=== PATIENT | female | born 1985 | race Caucasian/White ===

== ENCOUNTER 2016-09-23 10:20 | Inpatient (IN) ==
[2016-09-23] MEDS ORDERED: VANCOMYCIN 1 GM/NS 250 ML IV ONE ×2 (11:39→16:30)
--- NOTE | 2016-09-23 11:39 | PROVIDER DOCUMENTATION ---
HPI-Respiratory General - General Chief Complaint: Abnormal Lab[s] Stated Complaint: POSS PNEUMONIA Time Seen by Provider: 09/23/16 11:37 Source: patient Allergies/Adverse Reactions: Patient Allergies Allergy/AdvReac Type Severity Reaction Status Date / Time No Known Allergies Allergy Verified 09/23/16 10:35 Home Medications: Home Medication List Medication Instructions Recorded Confirmed Last Taken Type Hydrocodone/APAP 10 mg/325 mg 1 - 2 each PO Q4-6H PRN PRN #0 02/21/16 09/23/16 Unknown Rx [[place]-10] tablet Brompheniramine/Pseudoephed/Dm 5 ml PO Q6H PRN 09/23/16 09/23/16 09/23/16 History [Bromfed Dm Cough Syrup] Cefdinir 300 mg PO BID 09/23/16 09/23/16 09/23/16 History Ketorolac [Toradol] 10 mg PO Q6H PRN PRN 09/23/16 09/23/16 Unknown History Tamoxifen [Nolvadex] 20 mg PO DAILY 09/23/16 09/23/16 09/23/16 History - History of Present Illness-Resp Nature of Presenting Problem: patient is 31 y/o F that started to feel bad on 09/18/16 with coughing and congestion. She began to feel better the next day but 2 days later started to get worse. [place] [facility] [place] Doxy[place]. she returned to the ER on yesterday 09/22/16, she had complete work up with cxr and blood cultures. Dx with PNA(lingular) and gram positive rods BC. patient has had breast cancer and is under chemo. She is on Tamoxifen and tested positive for Beta Severity in ED: reports: moderate Onset/Duration: reports: gradual, 5 days ago, 6 days ago Timing: reports: still present, constant Context: reports: recent chemotherapy, multiple patients with similar complaints , recent URI Cough Quality/Degree: reports: moderate, productive cough Episode Frequency: no prior episodes Current Respiratory Medication Therapy: Initiated see nurses note Modifying Factors: worse with: coughing Associated Symptoms: reports: cough, fever/chills, muscle/bodyaches. denies: facial pain, nasal congestion, nasal drainage, wheezing Similar Symptoms Previously?: Yes Recently seen or treated by another doctor?: Yes Review of Systems - Adult - REVIEW OF SYSTEMS - ADULT Constitutional: reports: fever, fatique. denies: chills Eyes: reports: no symptoms reported Ears, Nose, Mouth & Throat: denies: ear pain, sinus problem, throat pain, throat swelling Cardiovascular: denies: chest pain, palpitations, syncope Respiratory: reports: cough, wheezing Gastrointestinal: denies: abdominal pain, diarrhea, nausea, vomiting Genitourinary: reports: no symptoms reported Musculoskeletal: reports: no symptoms reported Integumentary: reports: no symptoms reported Neurological: denies: dizziness/vertigo, headache/migraines, syncope Psychiatric: reports: no symptoms reported Endocrine: reports: no symptoms reported Hematologic/Lymphatic: reports: no symptoms reported Allergic/Immunologic: reports: no symptoms reported All Other Systems: Reviewed and Negative Past History - Adult - PAST MEDICAL HISTORY-ADULT Review of Records: reports: Old Records Reviewed, Nursing Assessment Review, Medications Reviewed Obstetrical/Gynecological: reports: other (breast ca) - PRIOR SURGERIES/PROCEDURES Surgical/Procedure History: reports: indwelling device (port a cath), breast ( mastectomy) - IMMUNIZATION STATUS Childhood Immunizations: See Nurse Assessment Flu Vaccine: See Nurse Assessment - FAMILY HISTORY Family History: reviewed, not pertinent - SOCIAL HISTORY Smoking: non-smoker Living Situation: family Physical Exam-General - PHYSICAL EXAM-ADULT Initial Vital Signs Reviewed: Yes - CONSTITUTIONAL General Appearance: alert, no apparent distress - EYES Eyes: PERRL/EOMI, pink conjunctivae - HEAD, EARS, NOSE, MOUTH & THROAT HENMT: normocephalic/atraumatic, moist mucous membranes, normal ENT inspection - NECK Neck: full range of motion, normal inspection. negative: C-spine tenderness - RESPIRATORY Respiratory: lungs clear, normal breath sounds, no respiratory distress, no accessory muscle use - CARDIOVASCULAR Cardiovascular: regular rate, rhythm, no edema, no murmur - GASTROINTESTINAL (ABDOMEN) Abdominal Exam: normal bowel sounds, non tender, soft, no organomegaly, no pulsatile mass - MUSCULOSKELETAL Extremity: normal range of motion, normal inspection, no pedal edema, normal capillary refill - SKIN Integumentary: normal color, normal turgor, warm/dry, other (no swelling or erythema to implants, no signs of infection to port-a-cath). negative: erythema , swelling - NEUROLOGIC Neurologic: grossly normal, no motor/sensory deficits - PSYCHIATRIC Psych/Mental Status: normal mood/affect, normal thought content, normal thought process, oriented x 3 Progress - PLAN OF CARE/RESULTS Progress/Plan/Lab Results: plan of care-labs, meds, admit 1207-hospitalist paged for admission, reviewed [place] [facility] [place]ital Signs Temp Pulse Resp BP Pulse Ox 09/23/16 13:51 75 20 111/72 99 09/23/16 10:24 98.1 F 71 18 137/78 100 No Known Allergies Allergy (Verified 09/23/16 10:35) Hydrocodone/APAP 10 mg/325 mg [[place]-10] 1 - 2 each PO Q4-6H PRN PRN #0 tablet 02/21/16 Brompheniramine/Pseudoephed/Dm [Bromfed Dm Cough Syrup] 5 ml PO Q6H PRN Cefdinir 300 mg PO BID 09/23/16 Ketorolac [Toradol] 10 mg PO Q6H PRN PRN 09/23/16 Tamoxifen [Nolvadex] 20 mg PO DAILY 09/23/16 Dietary Diet NPO Start ThuSep 23 1137 Laboratory 09/23/16 09/23/16 09/23/16 12:51 12:04 11:25 WBC RBC Hgb Hct MCV MCH MCHC RDW Std Deviation Plt Count MPV Immature Gran % (Auto) Neut % (Auto) Lymph % (Auto) [place] % (Auto) Eos % (Auto) Baso % (Auto) Immature Gran # (Auto) Neut # (Auto) Lymph # (Auto) [place] # (Auto) Eos # (Auto) Baso # (Auto) Specimen Type ARTERIAL Sample Site R BRACHIAL pH 7.44 pCO2 39 pO2 94 HCO3 26.6 H Base Excess 2.2 Oxyhemoglobin 96.1 ABG O2 Sat (Calculated) 16.7 ABG O2 Saturation 99.3 ABG Carboxyhemoglobin 1.70 ABG Methemoglobin 1.6 H Misha Test NO A-a O2 Difference 7.0 Total Hemoglobin 12.3 Lactate 0.60 Blood Gas Modality ROOM AIR FiO2 % 21.0 Sodium 141 Potassium 3.6 Chloride 106 Carbon Dioxide 26 Anion Gap 9 BUN 7 L Creatinine 0.5 Estimated GFR/1.73 m2 > 60 BUN/Creatinine Ratio 14 Glucose 111 H Calculated Osmolality 280 Calcium 8.4 L Total Bilirubin 0.10 L AST 10 ALT 8 L Alkaline Phosphatase 48 Total Protein 6.3 Albumin 3.4 L Globulin 2.9 Albumin/Globulin Ratio 1.2 Plasma Lactate 0.4 L 09/23/16 11:25 WBC 3.91 L RBC 3.94 L Hgb 10.8 L Hct 32.7 L MCV 83.0 MCH 27.4 MCHC 33.0 RDW Std Deviation 13.5 Plt Count 230 MPV 10.3 Immature Gran % (Auto) 0.0 Neut % (Auto) 68.8 Lymph % (Auto) 24.0 [place] % (Auto) 4.6 Eos % (Auto) 2.3 Baso % (Auto) 0.3 Immature Gran # (Auto) 0.00 Neut # (Auto) 2.69 Lymph # (Auto) 0.94 L [place] # (Auto) 0.18 Eos # (Auto) 0.09 Baso # (Auto) 0.01 Specimen Type Sample Site pH pCO2 pO2 HCO3 Base Excess Oxyhemoglobin ABG O2 Sat (Calculated) ABG O2 Saturation ABG Carboxyhemoglobin ABG Methemoglobin Misha Test A-a O2 Difference Total Hemoglobin Lactate Blood Gas Modality FiO2 % Sodium Potassium Chloride Carbon Dioxide Anion Gap BUN Creatinine Estimated GFR/1.73 m2 BUN/Creatinine Ratio Glucose Calculated Osmolality Calcium Total Bilirubin AST ALT Alkaline Phosphatase Total Protein Albumin Globulin Albumin/Globulin Ratio Plasma Lactate Orders Category Date Time Status NPO Diet 09/23/16 11:[address] THORAX W/CONTRAST [CT] Routine Exams 09/24/16 12:57 Ordered ABG [RESP] Routine Lab 09/23/16 12:04 Completed BLOOD CULTURE [BLDCUL] Stat Lab 09/23/16 11:25 Results CBC WITH ELECTRONIC DIFF [HEME] Stat Lab 09/23/16 11:25 Completed COMPREHENSIVE METABOLIC PANEL [CHEM] Stat Lab 09/23/16 11:25 Completed LACTATE, PLASMA [CHEM] Stat Lab 09/23/16 12:51 Completed Meropenem [Merrem] 1 gm Med 09/23/16 11:40 Discontinued 0.9% Sodium Chloride Inj [Ns] 50 ml IV NOW Vancomycin 1 gm/Ns 250 ml Med 09/23/16 11:39 Discontinued IV NOW Oxygen Device Routine Oth 09/23/16 11:37 Active EKG [EKG] Stat Ther 09/23/16 11:38 Draft Transfer/Admit Order [TRANSFER] Routine Transfer 09/23/16 15:01 Ordered - CONSULTS/PCP/HOSPITALIST Notification #1 *Consult/PCP/Hospitalist*: Time Discussed: 12:59 Reason/Comments: will examine patient Consult Disposition: Will see in ED Departure - Departure Time of Disposition Order: 12:59 DIAGNOSIS: Immunocompromised patient Pneumonia Qualifiers: Pneumonia type: due to unspecified organism Laterality: unspecified laterality Lung location: unspecified part of lung Qualified Code(s): J18.9 - Pneumonia, unspecified organism Disposition: ADMITTED INPATIENT 09 Certified Medical Emergency: Emergent Condition: Stable Attestation - Scribe Verification/Attestation Scribe:: Tremaine Silva Acting as Scribe for:: Rikki Anderson Scribe documention review:: This chart was documented by a scribe and accurately reflects the service the provider performed and the decisions made by the provider. Physician Attestation - Physician Attestation I, the provider, attest to the following statement:: Rikki Anderson Physician documentation Attestation:: This documentation recorded by the scribe accurately reflects the service I personally performed and the decisions made by me.
[2016-09-23] MEDS ORDERED: MERREM 1 GM in NS 50 ML IV ONE (11:40)
[2016-09-23 12:14] LABS: ALLEN TEST NO; BE 2.2 mmoll (-3.0-3.0); BLOOD TYPE ARTERIAL; DRAW SITE R BRACHIAL; METHB 1.6 % (0.0-1.5); O2(CT) 16.7 mL/dL (15.0-23.0); PCO2(98.6) 39 mmHg (35-45); PO2(98.6) 94 mmHg (60-100); SAMPLE BLOOD; SAO2 99.3 % (95.0-100.0); THB 12.3 g/dL (11.5-17.4); pH(98.6) 7.44 (7.35-7.45)
[2016-09-23 12:15] LABS: MODALITY ROOM AIR
[2016-09-23 12:21] LABS: MANUAL DIFF NEEDED? NO
[2016-09-23 12:29] LABS: BASO% 0.3 % (0.0-0.8); EOS# 0.09 X1000 (0.0-0.7); EOS% 2.3 % (0.0-10.0); HEMATOCRIT 32.7 % (37.0-47.0); HEMOGLOBIN 10.8 g/dL (12.0-16.0); LYMPH# 0.94 X1000 (1.2-3.4); MCH 27.4 PG (27-31); MONO# 0.18 X1000 (0.11-0.59); MONO% 4.6 % (1.7-9.3); MPV 10.3 FL (7.4-10.4); NEUT% 68.8 % (42.2-75.2); PLT 230 X1000 (130-400); RBC 3.94 XMIL (4.2-5.4)
[2016-09-23 13:04] LABS: AGAP 9; ALBUMIN 3.4 g/dL (3.5-5.0); ALKALINE PHOSPHATASE 48 U/L (32-104); BUN 7 mg/dL (8-22); CALCIUM 8.4 mg/dL (8.8-10.2); CHLORIDE 106 mmol/L (98-107); COSMO 280; GOT 10 U/L (10-30); GPT 8 U/L (10-36); POTASSIUM 3.6 mmol/L (3.5-5.1); SODIUM 141 mmol/L (136-145); TCO2 26 mmol/L (25-35); TOTAL PROTEIN 6.3 g/dL (6.3-8.3)
--- NOTE | 2016-09-23 13:04 | EKG Report ---
Test Performed on : 09/23/2016 11:42:27 AM Test Reason : CP Blood Pressure : / mmHG Vent. Rate : 072 BPM Atrial Rate : 072 BPM P-R Int : 118 ms QRS Dur : 074 ms QT Int : 388 ms P-R-T Axes : 010 069 037 degrees QTc Int : 424 ms Normal sinus rhythm. Normal ECG No previous ECGs available Unconfirmed Result
[2016-09-23] MEDS ORDERED: VANCOMYCIN IV PER PHARMACY MISC SCH (15:30)
--- NOTE | 2016-09-23 16:16 | HISTORY AND PHYSICAL ---
PRIMARY CARE PROVIDER: Dasia Alfaro MD. CHIEF COMPLAINT: Tenderness around the right port and was also told by Dr. Alfaro to come as she had gram positive cocci blood cultures that were obtained yesterday at [facility] and a chest x-ray had shown a pneumonia. HISTORY OF PRESENT ILLNESS: Ms. Michelle Tong is a 31-year-old, female who was diagnosed with breast cancer in January 2016. In February had a double mastectomy with lymph nodes removed from left side. During this time she has been receiving chemo up until her last dose which she states was around July 19 or . She has been followed by Dr. Alfaro for this. She is planned for implant exchange for November 06. She states that this last Thursday she went to [facility] to have routine labs drawn that were drawn from her right chest port. By she states that the site looked red. It was itchy and tender. She felt feverish and stated that her fever has gone up to 101.4. 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 Symptoms continued. Started having some chest pains with a yellow bloody phlegm with productive cough, so she went back to [facility]. Chest x-ray showed pneumonia and they lisa blood cultures. Today resulted blood cultures were gram-positive cocci and Dr. Alfaro instructed her to come here for further treatment. So far we have given her vancomycin and meropenem. White blood cells are low at 3000. She is afebrile. CT of the thorax has been ordered to further evaluate pneumonia. We will consult Dr. Brown. PAST MEDICAL HISTORY: Breast cancer with double mastectomy and lymph node removal on the left. Otherwise no other medical history. SOCIAL HISTORY: Denies tobacco, alcohol or illicit drug use. She is . 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 SURGICAL HISTORY: Double mastectomy in February of 2016 with port placement also. FAMILY HISTORY: Positive for breast cancer in her aunt and grandmother on her father's side. REVIEW OF SYSTEMS: Fourteen point review of systems were complete and all were negative except for those mentioned in above HPI. ALLERGIES: No known drug allergies. HOME MEDICATIONS: Bromfed 5 mL every 6 hours as needed. Toradol 10 mg p.o. q.6 hours as needed. Cefdinir 300 mg p.o. twice daily. Tamoxifen 20 mg p.o. daily. [place] 10 1-2 tabs p.o. every 4-6 hours as needed. LABORATORY DATA: White blood cells 3000, hemoglobin 10, hematocrit 32, platelet count 230,000. ABGs: PH 7.44, CO2 39, PO2 94, bicarb 26, base excess 2.2 with a saturation of 96% on room air. Lactate 0.6. Sodium 141, potassium 3.6, BUN 7, creatinine 0.5, glucose 111. Calcium 8.4, total bilirubin 0.1, AST 10, ALT 8, albumin 3.4. Serum lactate 0.4. IMAGING: CT of the thorax pending. ASSESSMENT AND PLAN: 1. Bacteremia. Blood cultures at [facility] showed gram positive cocci. We have reordered blood cultures here. We will start her on vancomycin and Merrem and consult Dr. Brown. Questionable infection of the right port given her symptoms of redness, itching and tenderness. This port was placed by Dr. Gant. 2. Pneumonia via the chest x-ray that was obtained from [facility] yesterday. We will do a CT of the thorax to further evaluate. She is on broad-spectrum antibiotics. She has complained of some blood-tinged, yellow tinged phlegm. 3. Breast cancer being followed by Dr. Alfaro. 4. Deep venous thrombosis prophylaxis. We will do TEDs. 5. Gastrointestinal prophylaxis. Proton pump inhibitor. Dictated by VEDA Yanez for Francis Rodriguez MD
[2016-09-23] MEDS ORDERED: ZOFRAN IV PRN (16:41)
[2016-09-23] MEDS ORDERED: TORADOL PO PRN (16:41)
[2016-09-23] MEDS ORDERED: TYLENOL PO PRN (16:41)
[2016-09-23] MEDS ORDERED: NORCO-10 PO PRN (16:41)
[2016-09-23] MEDS ORDERED: BROMFED DM LIQUID PO PRN (16:41)
[2016-09-23] MEDS ORDERED: MERREM 1 GM in NS 50 ML IV SCH (20:00)
--- NOTE | 2016-09-23 20:03 | CONSULTATION ---
DATE OF CONSULTATION: 09/23/2016 CONCLUSION: The patient has had a bilateral mastectomy and is taking tamoxifen. She has symptoms to suggest pneumonia, mainly pleuritic chest pain and yellow sputum. She went to [facility] and had blood cultures drawn. I called the lab at [facility]. The patient has 1 of 2 blood cultures growing a gram-positive sonny. This could represent a contaminant such as a diphtheroid or bacillus species. It could possibly represent a true infection that could be coming from her right-sided Port-A-Cath. I suspect that most likely it is going to turn down man to be a contaminant and that the patient's real infection is pneumonia. The lab's number is [phone]. RECOMMENDATIONS: I have discontinued meropenem and placed the patient on cefepime. I am also going to order a sputum for Gram stain and culture. Dr. Rodriguez has ordered a CT scan of the chest which should give us information to see if there is pneumonia present. DISCUSSION: The patient as mentioned above has had bilateral mastectomy and reconstruction. She is on tamoxifen. She has approximately a 1 day history of having a cough occasionally productive of yellow sputum and sometimes with blood also as well as pleuritic chest pain. Her CBC here shows a white count of 3910, hemoglobin 10.8, and platelet count 230,000. Blood gases show a pH of 7.44, PO2 of 94, pCO2 of 39, creatinine 0.5. GFR is greater than 60. Liver function studies are normal. Two blood cultures drawn here are pending. MULTINEEDLE SHIRRER HISTORY: She is 2, para 2, AB 0. REVIEW OF SYSTEMS: Eyes and ears: Patient wears glasses. Her hearing is good. Neck: No stiffness. Respiratory: See present illness. Gastrointestinal: No nausea, vomiting, or diarrhea. Genitourinary: No dysuria or flank pain. Endocrine: No history of diabetes or thyroid disease. Bones, joints, muscles: No joint swelling or bone pain. Neurologic: No seizures or loss of motor or sensory function. Integument: No rash. PREVIOUS HOSPITALIZATIONS AND OPERATIONS: She has had labor and deliveries. Bilateral mastectomy with lymph node resection and reconstruction. She also has a Port-A-Cath in place. MEDICAL DISEASES: Positive for breast cancer. Negative for diabetes. INFECTIOUS DISEASE HISTORY: Negative for pneumonia and UTI. FAMILY HISTORY: Positive for myocardial infarction and cancer. SOCIAL HISTORY: [place] She does not drink or smoke. She does not abuse drugs. Patient is . She is a respiratory therapist at [employer]. She does not have any pets at home either. HOME MEDICATIONS: Consist of Bromfed cough syrup, Toradol, hydrocodone, tamoxifen and cefdinir. PHYSICAL EXAMINATION: Vital Signs: Temperature is 98.1 degrees, pulse 72, respirations 20, blood pressure 108/51. Patient's weight is listed as 161 pounds. General: This is a somewhat ill- appearing, young female. She is in no acute distress. Head/eyes/ears/nose/ throat: She is wearing glasses. She can hear my spoken words and see near objects. In her mouth there were no white patches. Neck: No meningismus. Breasts: Both breasts have been reconstructed. Lungs: Clear to auscultation. Cardiovascular: Heart rate is regular. Abdomen: Soft and nontender. Extremities: No edema and no erythema. Thank you for the consultation. [facility]
[2016-09-23] MEDS: MAXIPIME 2 GM/NS 100 ML IV SCH (20:07)
[2016-09-23] MEDS: NS 1,000 ML IV SCH (20:07)
--- NOTE | 2016-09-23 23:12 | Diag Imaging Result Document ---
PROCEDURE NAME: CT THORAX W/CONTRAST - 09/23/2016 CT CHEST WITH INTRAVENOUS CONTRAST. DOSE REDUCTION PROTOCOL. COMPARISON: 09/19/2016. FINDINGS: There are bilateral breast implants. The heart is not enlarged. No pleural effusions. No thoracic aortic aneurysm or dissection. No enlarged mediastinal or hilar lymph nodes. Minimal improvement in the atelectasis and/or infiltrates in the lingular segment of the left upper lobe. Likely minimal atelectasis in the posterior left lower lobe. No other interval change. There is a right-sided Port-A-Cath. No pneumothorax. IMPRESSION: 1. Development of minimal atelectasis or infiltrate in the right lower lobe. 2. Minimal improvement in the atelectasis or infiltrates in the lingular segment of the left upper lobe. A preliminary report was given at 10:04 p.m..
[2016-09-24] MEDS: MAXIPIME 2 GM/NS 100 ML IV SCH ×3 (04:52→20:05)
[2016-09-24] MEDS: VANCOMYCIN 1,500 MG in NS 250 ML IV SCH ×2 (04:53→18:41)
[2016-09-24] MEDS: NS 1,000 ML IV SCH ×2 (04:54→18:39)
[2016-09-24] MEDS: PRILOSEC PO SCH (06:34)
[2016-09-24 07:10] LABS: MANUAL DIFF NEEDED? NO
[2016-09-24 07:12] LABS: BASO% 0.3 % (0.0-0.8); EOS# 0.11 X1000 (0.0-0.7); EOS% 3.5 % (0.0-10.0); HEMATOCRIT 32.6 % (37.0-47.0); HEMOGLOBIN 10.6 g/dL (12.0-16.0); LYMPH# 1.06 X1000 (1.2-3.4); MCHC 32.5 g/dL (33-37); MONO% 6.4 % (1.7-9.3); MPV 9.9 FL (7.4-10.4); NEUT% 55.8 % (42.2-75.2); PLT 233 X1000 (130-400); RBC 3.93 XMIL (4.2-5.4)
[2016-09-24 07:31] LABS: AGAP 7; ALBUMIN 3.2 g/dL (3.5-5.0); ALKALINE PHOSPHATASE 43 U/L (32-104); BUN 6 mg/dL (8-22); CALCIUM 8.5 mg/dL (8.8-10.2); CHLORIDE 107 mmol/L (98-107); COSMO 275; GOT 9 U/L (10-30); GPT 6 U/L (10-36); MAGNESIUM 1.8 mg/dL (1.5-2.7); SODIUM 139 mmol/L (136-145); TCO2 25 mmol/L (25-35); TOTAL BILIRUBIN 0.15 mg/dL (0.20-1.00); TOTAL PROTEIN 5.9 g/dL (6.3-8.3)
[2016-09-24 07:35] LABS: INR 1.08; PTT 29.2 Seconds (22.0-36.0)
[2016-09-24] MEDS: NOLVADEX PO SCH (09:48)
--- NOTE | 2016-09-24 13:10 | PROGRESS NOTE ---
DATE: 09/24/2016 Today Ms. Tong refers to be doing fine. Denies any chest pain. No shortness of breath. Still has some dry cough and she is not having any more expectoration. OBJECTIVE: Vital Signs: Stable. Blood pressure is 121/67, pulse of 78, respiration is 18, temperature 97.8 degrees. General: Ms. Tong is a 31-year-old female. She is in bed, not in any distress. HEENT: Mucosa is pink and moist. Anicteric. Acyanotic. Neck: Supple. Chest: Good air entry bilateral. No crepitations. No rhonchi. Cardiovascular: Regular rate and rhythm. No murmurs, no rubs. No gallops. There is a port on the left anterior chest wall. POWDER LOADER: Patient is alert and oriented x4. LABORATORY DATA: WBC is at 3.12, hemoglobin is 10.6, platelet count of 233,000. Chemistry is reviewed. Completely unremarkable. Blood cultures over here so far have not grown anything. DIAGNOSTIC STUDIES: A CT scan of the chest which was done yesterday showed development of minimal atelectasis or infiltrate in the right lower lobe and minimal improvement in atelectasis or infiltrates in the lingula segment of the left upper lobe. ASSESSMENT: 1. Multilobar pneumonia. This apparently failed outpatient therapy. The patient is getting IV antibiotics. Has been seen by Dr. Brown. Will be awaiting for him to make a decision if he would prefer to treat the patient on outpatient basis with IV antibiotics. The patient already has a port so that would not be a major problem to do. 2. Blood culture positive for gram-positive rods. I think this is probably contamination. We did repeat blood cultures over here in the hospital and so far it has not grown anything. 3. History of left breast cancer status post bilateral mastectomy. Patient follows up with Dr. Alfaro. 4. Normocytic anemia. Hemoglobin and hematocrit is stable. PLAN: Ms. Tong is relatively doing fine. She is stable. She is getting IV antibiotics for what seems to be healthcare-associated pneumonia that failed outpatient therapy. She is getting IV antibiotics. Will be pending final recommendations from Dr. Brown as to if he would proceed treating for a longer period with IV antibiotics or he will switch to p.o. We will also be waiting on the final culture on the blood. We anticipate to discharge the patient within a day or 2.
--- NOTE | 2016-09-24 13:25 | CONSULTATION ---
DATE OF CONSULTATION: 09/24/2016 REASON FOR CONSULTATION: This patient is known to us with breast cancer. REQUESTING WATER METER READER: Dr. Rodriguez. HISTORY OF PRESENT ILLNESS: Ms Tong is a 31-year-old, female, who is known to us as we treated her for breast cancer, who presented to the ER with fever, fatigue and chills. The patient was initially evaluated at [facility] last week and was found to have pneumonia. She was treated with oral antibiotics. Blood cultures were drawn at that time. She reports that after starting the oral antibiotics, she continued to have worsening symptoms. She called back the [facility] Emergency Department, and they reviewed her blood culture results which found gram-positive cocci. Patient preferred to be admitted here at [facility]. She was directed to go to the emergency department for further evaluation due to having possible bacteremia and possible sepsis. The patient was evaluated and then admitted. Review of blood cultures have been drawn, and she has been started on IV antibiotics. The patient has also had a repeat CT of the chest which is consistent with ongoing pneumonia. The patient previously received dose dense Adriamycin Cytoxan followed by dose dense Taxol which she completed on July 23, 2016. Patient has opted to defer adjuvant radiation therapy due to lack of significant benefit. She is currently on tamoxifen daily which she has been tolerating well. She was recently seen on September 16, 2016 in good health at that time. PAST MEDICAL HISTORY: Breast cancer, status post double mastectomy with lymph node removal on the left. SURGICAL HISTORY: Double mastectomy in February 2016 and then also a port placement. SOCIAL HISTORY: Patient denies any tobacco, alcohol, illicit drug use. She is . 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 FAMILY HISTORY: Positive for breast cancer in her aunt and grandmother on her father's side. Patient has previously undergone genetic counseling and testing with us at [facility]. REVIEW OF SYSTEMS: As per the HPI. All else is either negative or noncontributory. PHYSICAL EXAMINATION: Vital Signs: Temperature 98.0 degrees, heart rate 79, respirations 18, blood pressure 160/70, O2 saturation 98% on room air. General: female sitting up in hospital bed eating. She is in no acute distress. HEENT: Head normocephalic, atraumatic. still present. Eyes: Pupils equal, round, symmetric. Ears, nose, throat, neck and mouth: Oral mucosa is normal. Gross auditory acuity is intact. Trachea is midline. Cardiovascular: S1, S2 heard. No murmurs, gallops, rubs appreciated. Respiratory: No wheezing noted. No rhonchi noted. Gastrointestinal: Abdomen is soft and nondistended. Positive bowel sounds. Musculoskeletal: No bony abnormalities noted. Extremities: No edema noted in bilateral lower extremities. Neurologic: Patient is alert and orient x3. No focal motor deficits noted. LABS AND STUDIES: White blood cells 3.12, hemoglobin 10.6, hematocrit 32.6, platelets 233. ANC 1.74. Sodium 139, potassium 4.0, chloride 107, CO2 25, BUN 6, creatinine 0.5, glucose 98. Repeat blood cultures are currently pending. CT of chest shows right lower lobe and left upper lobe infiltrates. ASSESSMENT: 1. Possible port infection/possible bacteremia. Repeat blood cultures are currently pending. Patient is being treated with broad-spectrum antibiotics that includes vancomycin, cefepime. Infectious disease, Dr. Brown, has been consulted as well. Continue to monitor. Continue intravenous antibiotics. 2. History of breast cancer. Patient has now completed her chemotherapy. She opted for no adjuvant radiation therapy. She is currently on tamoxifen. Patient wishes to continue this at this time. Not causing her any issues. 3. Pneumonia. Patient is currently on intravenous antibiotics. Continue management per Dr. Brown. I would like to thank you for consulting us to participate in Ms. Tong's care while she is here at [facility]. Will continue to follow along and adjust our treatment plan per hospital course. Dictated by LUPILLO Mays for Dasia Alfaro MD
--- NOTE | 2016-09-24 17:57 | PROGRESS NOTE ---
DATE: 09/24/2016 PRESENT ILLNESS: The patient has as seen on CAT scan, bilateral pulmonary infiltrates. She also had blood cultures drawn. There are 2 bottles per blood culture so out of the 4 bottles, 3 of them are not growing anything and the 1 bottle that is growing out something it turns out is a gram positive sonny. I think it is highly likely that this positive blood culture will be a contaminant and the organism will be identified as something like a Corynebacterium or bacillus or a diphtheroid. I think then we can conclude that is a contaminated culture and the patient does not have a bacteremia. MEDICATIONS: The patient currently is receiving vancomycin and cefepime. PHYSICAL EXAMINATION: Vital Signs: Temperature is 97.7 degrees, pulse 77, respirations 18, blood pressure 155/75. Generally: This is a fairly healthy-appearing, young female. She is in no acute distress. Lungs: Clear to auscultation. Cardiovascular: Regular heart rate. Abdomen: Soft without masses or tenderness. Chest: The patient has bilateral breast implants. Her Port-A- Cath site is not erythematous or swollen. LAB AND X-RAY: The patient had a CT scan of the chest which showed bilateral infiltrates. CBC today showed a white count of 3120, hemoglobin 10.6, and platelet count 233,000. Creatinine 0.5. Liver function studies are normal. ASSESSMENT AND PLAN: I think the patient has a bilateral pneumonia. My plan would be to continue the current antibiotics. I doubt that the patient's positive blood culture is a pathogen. I think it will turning sander tender to be a contaminated blood culture and no antimicrobial therapy for it is indicated. COMORBIDITIES: The main one is that she has had breast cancer and mastectomy and reconstruction. The patient also is on tamoxifen.
[2016-09-25] MEDS: MAXIPIME 2 GM/NS 100 ML IV SCH ×3 (04:37→20:26)
[2016-09-25] MEDS: NS 1,000 ML IV SCH ×3 (04:38→21:42)
[2016-09-25] MEDS: VANCOMYCIN 1,500 MG in NS 250 ML IV SCH (05:22)
[2016-09-25] MEDS: PRILOSEC PO SCH (06:18)
[2016-09-25] MEDS: NOLVADEX PO SCH (10:03)
--- NOTE | 2016-09-25 13:58 | CONSULTATION ---
DATE OF CONSULTATION: 09/24/2016 ADDENDUM REPORT DATE OF ADDENDUM: 09/25/2016 ADDENDUM: The patient's outside facility blood cultures from [facility] were positive for gram-positive rods. This was a preliminary report. Dictated by LUPILLO Mays for Dasia Alfaro MD
--- NOTE | 2016-09-25 16:21 | PROGRESS NOTE ---
DATE: 09/25/2016 SUBJECTIVE: Today, Ms. Tong referred to feel a little down. Just generalized weakness, but otherwise no chest pain. She also continues to have cough with yellowish dark expectoration. OBJECTIVE: General: Ms. Tong is a 31-year-old, female. She was in bed. Did not seem to be in any distress. HEENT: Mucosa is pink and moist. Anicteric. Acyanotic. Neck: Neck is supple. Chest: Good air entry bilaterally. No crepitations. No rhonchi. Cardiovascular: Regular rate and rhythm. There are no murmurs, no rubs, no gallops. There is a port on the left anterior chest wall. Abdomen: Soft, nontender. Extremities: No pedal edema. SOFTWARE CONTROLS ENGINEER: Patient is alert and oriented x4. There is no focal neurological deficit. LABORATORY DATA: None for today. ASSESSMENT: 1. Multilobar pneumonia. The patient apparently failed outpatient therapy. We have her here with IV antibiotics and is being followed by Dr. Brown. Will be waiting on Dr. Brown to make a decision if he wants her to go home on IV antibiotics or p.o. 2. Gram-positive sonny bacteremia, 2/2. This came actually from an outside facility. So far, the blood cultures that we have here is 2/2, no growth. I think it is probably contamination. However, the patient is being seen as well by Dr. Brown and I will defer further recommendations to him. 3. History of left breast cancer status post bilateral mastectomy. Patient is seeing Dr. Alfaro. 4. Normocytic anemia. Likely related to chronic illness. Her hemoglobin and hematocrit is stable. GENERAL PLAN: Ms. Tong is a 31-year-old female, who has been in the hospital for the past 2 days. Presented after she failed outpatient treatment for pneumonia and was called in to come to the hospital because blood cultures were positive in an outside facility that she visited. While she was in the hospital a CT scan of the chest has shown that she has multifocal pneumonia. Her blood cultures have so far been negative. The plan going forward is for ID to give us some recommendations if patient will be going home on p.o. or IV antibiotics. Today , patient said she felt generally weak. So I am going to repeat her lab work for tomorrow and a chest x-ray to make sure that there is nothing new that has happened. If she is feeling a lot better tomorrow and we have a plan on her antibiotics, then we will discharge her tomorrow. I spoke with Dr Brown and he is ok with the patient being discharged tomorrow on PO antibiotics. MTDD
--- NOTE | 2016-09-25 17:53 | PROGRESS NOTE ---
DATE: 09/25/2016 PRESENT ILLNESS: The patient has pneumonia. She had a positive blood culture in 1 of 4 bottles for gram-positive rods which appears to be a bacillus organism. I think this represents a contaminant and there is no treatment indicated. MEDICATIONS: Patient is receiving vancomycin and cefepime. PHYSICAL EXAMINATION: Vital Signs: Temperature is 98.2 degrees, pulse 72, respirations 18, blood pressure 106/63. Generally: This is a somewhat ill-appearing, young female. She is in no acute distress. Lungs: Clear to auscultation. Cardiovascular: Regular heart rate. Thorax: Patient has a Port-A-Cath in place. The site is not swollen or red. Abdomen: Soft and nontender. LAB AND X-RAY: There is no new lab or x-ray for today. Blood and sputum cultures have remained negative. ASSESSMENT AND PLAN: Patient has pneumonia. I discussed with Dr. Rodriguez and the patient various options. We all agreed to have the patient go home tomorrow on oral antibiotics. Specifically she has been given a prescription for Augmentin 875 mg and Cipro 500 mg each taken every 12 hours for 10 days. I have requested that the patient see me in the office in 2 weeks at which time I will examine her and also repeat her chest x-ray. COMORBIDITY: She has breast cancer. She has had a mastectomy and reconstruction. She is on tamoxifen.
[2016-09-25] MEDS: VANCOMYCIN 1,750 MG in NS 250 ML IV SCH (21:41)
[2016-09-26] MEDS: MAXIPIME 2 GM/NS 100 ML IV SCH ×2 (04:56→11:52)
[2016-09-26] MEDS: NS 1,000 ML IV SCH ×2 (04:56→08:01)
[2016-09-26] MEDS: PRILOSEC PO SCH (06:31)
[2016-09-26 06:40] LABS: MANUAL DIFF NEEDED? NO
[2016-09-26 06:47] LABS: BASO% 0.6 % (0.0-0.8); EOS# 0.15 X1000 (0.0-0.7); EOS% 4.4 % (0.0-10.0); HEMATOCRIT 33.8 % (37.0-47.0); HEMOGLOBIN 10.9 g/dL (12.0-16.0); LYMPH# 1.16 X1000 (1.2-3.4); LYMPH% 34.1 % (20.5-51.1); MCH 26.7 PG (27-31); MCHC 32.2 g/dL (33-37); MCV 82.8 FL (81-99); MONO% 5.9 % (1.7-9.3); MPV 9.6 FL (7.4-10.4); PLT 233 X1000 (130-400); RBC 4.08 XMIL (4.2-5.4)
--- NOTE | 2016-09-26 06:51 | Diag Imaging Result Document ---
PROCEDURE NAME: CHEST-PORTABLE - 09/26/2016 PORTABLE CHEST: COMPARISON: 05/01/2016. FINDINGS: No change in the right-sided Port-A-Cath. No pneumothorax. There are bilateral breast implants. The lungs are well expanded. The heart is not enlarged. The vessels are not distended. No pneumonia. No pleural effusions identified. IMPRESSION: Negative chest.
[2016-09-26 07:02] LABS: AGAP 9; BUN 8 mg/dL (8-22); CALCIUM 8.2 mg/dL (8.8-10.2); CHLORIDE 107 mmol/L (98-107); COSMO 280; POTASSIUM 4.4 mmol/L (3.5-5.1); SODIUM 141 mmol/L (136-145); TCO2 25 mmol/L (25-35)
[2016-09-26 07:58] VITALS: BP 108/63
[2016-09-26] MEDS: VANCOMYCIN 1,750 MG in NS 250 ML IV SCH (09:53)
[2016-09-26] MEDS: NOLVADEX PO SCH (09:53)
[2016-09-26] MEDS ORDERED: HEPARIN ONE (15:22)
[2016-09-26] MEDS ORDERED: AUGMENTIN PO SCH (21:00)
[2016-09-26] MEDS ORDERED: CIPRO PO SCH (21:00)
--- NOTE | 2016-09-27 13:47 | DISCHARGE SUMMARY ---
ADMISSION DATE: 09/23/2016 DISCHARGE DATE: 09/26/2016 CONSULTATIONS: 1. Dr. Ramiro Brown with Infectious Disease. 2. Dr. Dasia Alfaro with Oncology. PRIMARY PROCEDURES: 1. Chest CT showed development of minimal atelectasis infiltrate in the right lower lobe. Minimal improvement of atelectasis or infiltrates in the lingular segment of the left upper lobe. 2. Followup chest x-ray showed negative chest. DISCHARGE DIAGNOSES: 1. Multilobar pneumonia with failed outpatient therapy. Patient received IV antibiotics as per Dr. Brown. The patient will be discharged on p.o. antibiotics with Augmentin and Cipro that she will take every 12 hours for 10 days and he will see the patient back in his office in 2 weeks with a repeat chest x-ray. 2. Gram positive sonny bacteremia 2/2 likely came from an outside facility. So far blood cultures here 2/2 have had no growth. It was thought it was probably contamination however patient again is being followed by Dr. Brown. 3. History of left breast cancer status post bilateral mastectomy. Patient does see Dr. Alfaro. 4. Normocytic anemia related to chronic illness. Hemoglobin and hematocrit has remained stable. HOSPITAL COURSE: Briefly, Ms Tong is a 31-year-old, female who was admitted to the hospital for failed outpatient treatment of pneumonia. She was called to come to the hospital because blood cultures were positive in an outside facility that she had visited. While she was in the hospital a CT scan of the chest did show multifocal pneumonia. Her blood cultures here 08/14 have been negative. The plan is for the patient to go home on p.o. antibiotics as per Dr. Brown with Cipro and Augmentin q.12 hours for 10 days and follow up with his office with a repeat chest x-ray. The patient is clinically improved. Her chest x-ray today did not show any pneumonia. Again the patient is being discharged home. Dr. Swan has assessed the patient and feels that she is appropriate for discharge. VITAL SIGNS: Temperature is 98.3 degrees, heart rate 65, respirations 18, blood pressure 108/63, O2 is 100% on room air. DISCHARGE MEDICATIONS: 1. Bromfed cough syrup 5 mL p.o. q.6 hours p.r.n. 2. Nolvadex 20 mg p.o. daily. 3. [place] 10/325, 1-2 p.o. q 4-6 hours p.r.n. 4. Toradol 10 mg p.o. q.6 hours. 5. Augmentin 875 p.o. q.12 hours for 10 days. 6. Cipro 500 mg p.o. b.i.d. for 10 days. 7. Prilosec 40 mg p.o. daily. DISPOSITION: Patient is being discharged home. FOLLOWUP: She will need to follow up with Dr. Ramiro Brown as instructed, as well as Dr. Dasia Alfaro, who she follows for previous breast cancer. Patient can return to the ED for any worsening of symptoms. TIME SPENT AT DISCHARGE: Greater than 30 minutes. Dictated by VEDA Middleton for David Romero MD
== END 2016-09-26 15:44 | disposition home or self-care (01) | DRG 195 ==
LOC: ED 10:20 → EDIPHOLD 10:22 → 3N 20:11
PROVIDERS: ATTEND Internal Medicine
DX: J18.9 Pneumonia, unspecified organism (principal); C50.919 Malignant neoplasm of unspecified site of unspecified female breast; D63.8 Anemia in other chronic diseases classified elsewhere; Y95 Nosocomial condition; Z79.810 Long term (current) use of selective estrogen receptor modulators (SERMs); Z79.899 Other long term (current) drug therapy; Z80.3 Family history of malignant neoplasm of breast; Z82.49 Family history of ischemic heart disease and other diseases of the circulatory system
CPT/HCPCS: 71010; 71260; 80048; 80053; 80202; 82805; 83605; 83735; 84443; 85025; 85610; 85730; 87040; 87070; 87205; 93005; 96365; 96367; 96375; J0692; J2185; J2405; J3370; J7030; J7050; Q9967; S0187